=== PATIENT | male | born 1930 | race Caucasian/White ===

== ENCOUNTER 2019-02-27 13:23 | Outpatient (CLI) | payer MEDICARE, OTHER ==
[2019-02-27 13:53] LABS: INR-International Normal Ratio 2.4; Prothrombin Time 25.9 SEC (12.0-14.7)
== END 2019-02-27 13:24 | disposition home or self-care (01) ==
LOC: NAV LABSP 13:23
PROVIDERS: ATTEND Internal Medicine
DX: Z51.81 Encounter for therapeutic drug level monitoring (principal); I11.0 Hypertensive heart disease with heart failure; I50.30 Unspecified diastolic (congestive) heart failure; Z79.01 Long term (current) use of anticoagulants
CPT/HCPCS: 36415; 85610

== ENCOUNTER 2019-03-23 06:56 | Outpatient (CLI) | payer MEDICARE, OTHER ==
[2019-03-23 07:16] LABS: INR-International Normal Ratio 1.3; Prothrombin Time 16.3 SEC (12.0-14.7)
== END 2019-03-23 06:57 | disposition home or self-care (01) ==
LOC: NAV LABSP 06:56
PROVIDERS: ATTEND Internal Medicine
DX: Z51.81 Encounter for therapeutic drug level monitoring (principal); I11.0 Hypertensive heart disease with heart failure; I50.9 Heart failure, unspecified; Z79.01 Long term (current) use of anticoagulants
CPT/HCPCS: 36415; 85610